=== PATIENT | male | born 1955 | race Caucasian/White ===

== ENCOUNTER 2018-04-23 09:04 | Outpatient (CLI) | payer BC, SELFPAY ==
--- NOTE | 2018-04-23 09:27 | DI.RAD_ITS ---
SYMPTOMS/DIAGNOSIS: PNEUMONIA, J18.9 PA AND LATERAL CHEST: The lungs are free of infiltrate. There is no pleural effusion. The cardiovascular structures are intact. SUMMARY: No evidence of acute cardiopulmonary disease.
== END 2018-04-23 09:24 ==
PROVIDERS: PCP Family Medicine; Visit Provider Physician Assistant Medical
DX: J18.9 Pneumonia, unspecified organism (principal)
CPT/HCPCS: 71046

== ENCOUNTER 2018-10-05 11:15 | Outpatient (CLI) | payer BC, SELFPAY ==
--- NOTE | 2018-10-05 09:30 | DI.RAD_ITS ---
SYMPTOM/DIAGNOSIS: COUGH, R05 PA AND LATERAL CHEST: Comparison is made with 04/23/18. Heart size and pulmonary vasculature are stable and within normal limits. The lungs show no focal consolidating infiltrates, effusions or pneumothoraces. The bones appear intact. IMPRESSION: No acute pulmonary process.
== END 2018-10-05 11:35 ==
PROVIDERS: PCP Family Medicine; Visit Provider Physician Assistant Medical
DX: R05 Cough (principal)
CPT/HCPCS: 71046

== ENCOUNTER 2019-12-23 09:49 | Outpatient (REF) | payer BC, SELFPAY ==
[2019-12-23 19:23] LABS: HCT 43.4 % (40.0-50.0); HGB 14.5 g/dL (13.5-17.5); Mean Corp. HGB Concentration 33.4 g/dL (32.0-36.0); Mean Corpuscular Hemoglobin 30.8 pg (27.0-33.0); Mean Corpuscular Volume 92.1 fL (80-95); Mean Platelet Volume 10.1 fL (8.0-11.0); Platelet Count 205 x1000/uL (130-400); RBC 4.71 m/cumm (4.50-6.00); RBC Distribution Width 13.4 % (11.8-14.1); White Blood Cell Count 4.42 k/cumm (4.4-10.8)
[2019-12-23 20:01] LABS: ALT 19 U/L (16-63); AST 15 U/L (15-37); Albumin 4.2 g/dL (3.4-5.0); Alkaline Phosphatase 50 U/L (46-116); Anion Gap 8.3 mmol/L (3-11); BUN 16 mg/dL (7-18); Bilirubin, Total 1.4 mg/dL (0.2-1.0); CO2 27.7 mmol/L (21.0-32.0); CREATININE 0.72 mg/dL (0.70-1.30); Calcium 9.3 mg/dL (8.5-10.1); Calculated LDL 104 mg/dL (<100); Chloride 106 mmol/L (98-107); Cholesterol 162 mg/dL (<200); Glucose 89 mg/dL (74-106); HDL Cholesterol 48 mg/dL (40-60); Potassium 4.1 mmol/L (3.5-5.1); Sodium 142 mmol/L (136-145); Total Protein 6.9 g/dL (6.4-8.2); Triglyceride 54 mg/dL (<150); Vitamin B12 395 pg/mL (193-986)
[2019-12-26 06:16] LABS: Vitamin D 25 Total 29.1 ng/ml (30-100)
[2019-12-26 09:35] LABS: PSA, Screening 0.8 ng/mL (0.0-4.5)
== END 2019-12-23 10:09 ==
LOC: NCHCN 09:49
PROVIDERS: PCP Family Medicine; Visit Provider Family Medicine
DX: Z98.84 Bariatric surgery status (principal); Z00.00 Encounter for general adult medical examination without abnormal findings
CPT/HCPCS: 80053; 80061; 82306; 84153; 85027; 82607

== ENCOUNTER 2021-04-24 12:44 | Outpatient (REF) | payer BC, SELFPAY ==
[2021-04-27 12:11] LABS: COVID-19 RT-PCR UVMMC Result Positive (Negative)
== END 2021-04-24 12:45 | disposition home or self-care (01) ==
LOC: LBN 12:44
PROVIDERS: PCP Family Medicine; Visit Provider Physician Assistant Medical
DX: Z11.52 Encounter for screening for COVID-19 (principal)
CPT/HCPCS: U0003

== ENCOUNTER 2021-10-16 16:59 | Emergency (ER) | payer BC, SELFPAY ==
--- NOTE | 2021-10-16 17:00 | RT.EKG_ITS ---
APPROVED REPORT Exam: Resting ECG Reason for Exam: CHEST PAIN Patient Location: E HR:60 bpm ECG Measurements Heart Rate 60 AXIS MT 174 P 16 QRSd 105 QRS -23 QT 420 T 36 QTc 420 Conclusion Sinus rhythm...normal P axis, V-rate 60- 99 Probable lateral infarct, old...Q>35mS, abnormal ST-T, V5-6 I aVL
[2021-10-16 17:10] VITALS: BP 145/79; PULSE 65; RESP 18; TEMP 37; O2SAT 98
--- NOTE | 2021-10-16 17:15 | DI.RAD_ITS ---
Exam(s) XR CHEST 2V PA LATERAL EXAM: XR CHEST 2V PA LATERAL CLINICAL HISTORY: chest pain TECHNIQUE: 2D digital imaging was performed of the chest. Three images were obtained. PA and later al views were obtained. COMPARISON: CR XR CHEST 2V PA LATERAL from 10/05/2018 FINDINGS: MEDIASTINUM: Normal. HEART: Normal. PULMONARY VASCULATURE: Normal. LUNGS: Clear. PLEURAL SPACE: No pleural effusion or pneumothorax. BONE:Within normal limits for the patient's age. Right shoulder replacement is incompletely imaged o n the current examination. OTHER FINDINGS:Normal. IMPRESSION: No acute pulmonary findings. DATA REPOSITORY: RADIATION DOSE DELIVERED:
--- NOTE | 2021-10-16 17:24 | ED.GENADUL_ITS ---
Discharge Plan Disposition Patient Disposition: HOME Discharge Details Clinical Impression: Atypical chest pain Primary Care Provider: Dacia Hancock V ED Provider: Kofi Jacobson Discharge Instructions Instructions: Chest Pain (ED) Additional Instructions: Please take a baby aspirin a day Please follow-up with your doctor this week Return if any concerns Medical Decision Making patient with atypical chest pain two sets of cardiac enzymes negative in pain free patient low heart score - he will follow up with pcp next week as planned HPI General Date/Time Provider Initiated Documentation: 10/16/21 17:23 . HPI Narrative: 66-year-old presented to the emergency room for evaluation of chest pounding. He had chemotherapy today. P.m. while taking a walk. He felt heart beat hard and admits as a usual. He felt some radiation of discomfort to his left shoulder into the back of his hea d. The discomfort started on its own. He had 1 more episode while lying down. At times he believes his heart rate was about 80. He is usually a very active person. Last weekend he was cutting trees and chipping brush and had no discomfort. No headaches. No neck pain. Currently without any symptoms of Emergency Department. No chest pressure per se. No chest pain. No cough. No shortness of breath. No abdominal pain. No back pain. No nausea no vomiting. He is not on any medications. He sees his PCP on a regular basis. Related Data Allergies Allergy/AdvReac Type Severity Reaction Status Date / Time vancomycin Allergy Severe Anaphylaxis Unverified 10/16/21 17:33 aspirin AdvReac Mild Nausea Unverified 10/16/21 17:33 General Stated Complaint: Chest Pain JANA: 2 Review of Systems Narrative: Constitutional negative for fevers and chills. Negative for fatigue HEENT no visual changes. Cardiovascular see HPI respiratory see HPI Abdominal pain. No nausea vomiting General well-developed Skin negative Neuro negative Psych anxiety Endo negative HemeNot on a blood thinners PFSH All Active Problems (Updated 10/16/21 @ 21:29 by Kofi Jacobson MD) Atypical chest pain (Acute) Social History Smoking/Tobacco Use Status: Never Smoking risk assessment performed?: Yes Alcohol Intake: never Substance use type: does not use Do you feel safe at home: Yes Do you feel safe in your relationship?: Yes Exam Narrative Exam Narrative: AAOx3 Calm NAD Pleasabt cooperative VENESSA EOMI MMM CTAB RRR no m/r/g ABd S ND NT Skin Intact Neuro grossly intact Ext no edema Pysch normalmood and affect Course Vital Signs Vital signs: Vital Signs Temperature 37 C 10/16/21 17:10 Pulse 65 10/16/21 17:10 Respiratory Rate 18 10/16/21 17:10 Blood Pressure 145/79 H 10/16/21 17:10 Pulse Oximetry 98 10/16/21 17:10 Temperature 37 C 10/16/21 17:10 Temperature Source Temporal Artery Scan 10/16/21 17:10 Pulse 65 10/16/21 17:10 Respiratory Rate 18 10/16/21 17:10 Blood Pressure 145/79 H 10/16/21 17:10 Blood Pressure Position Supine 10/16/21 17:10 Pulse Oximetry 98 10/16/21 17:10 Oxygen Delivery Method Room Air 10/16/21 17:10 Oxygen Flow Rate 0 10/16/21 17:10
[2021-10-16 17:26] VITALS: RESP 18
[2021-10-16] MEDS: Aspirin 81 MG CHEW 324 MG CH (17:41)
[2021-10-16 17:50] LABS: Abs Immature Grans 0.01 10^3/uL (0.0-0.06); Absolute Basophil Count 0.03 10^3/uL (0.0-0.2); Absolute Eosinophil Count 0.18 10^3/uL (0.0-0.7); Absolute Lymphocyte Count 1.56 10^3/uL (1.2-3.4); Absolute Monocyte Count 0.38 10^3/uL (0.1-0.8); Absolute Neutrophil Count 2.36 10^3/uL (1.2-6.7); Basophils % 0.7; HCT 40.1 % (40.0-50.0); HGB 13.6 g/dL (13.5-17.5); Immature Grans % 0.2; Lymphocytes % 34.5; MCH 30.6 pg (27.0-33.0); MCHC 33.9 % (32.0-36.0); MCV 90 fL (80-95); MPV 9.6 fL (8.0-11.0); Monocytes % 8.4; Neutrophils % 52.2; Platelet Count 182 10^3/uL (130-400); RBC 4.44 10^6/uL (4.36-5.78); RDW 13.2 % (11.8-14.1); RDW-SD 42.6 fL; WBC 4.52 10^3/uL (4.4-10.8)
[2021-10-16 18:04] LABS: ALT 18 U/L (16-63); AST 14 U/L (15-37); Albumin 3.8 g/dL (3.4-5.0); Alkaline Phosphatase 49 U/L (46-116); Anion Gap 7.7 mmol/L (3-11); BUN 12 mg/dL (7-18); CO2 27.3 mmol/L (21.0-32.0); CREATININE 0.9 mg/dL (0.70-1.30); Calcium 8.4 mg/dL (8.5-10.1); Chloride 105 mmol/L (98-107); Glucose 91 mg/dL (74-106); Magnesium 2.2 mg/dL (1.8-2.4); Sodium 140 mmol/L (136-145); Total Protein 6.6 g/dL (6.4-8.2); Troponin I < 50 ng/L (<or=60)
--- NOTE | 2021-10-16 18:05 | DI.VRAD_ITS ---
PROCEDURE INFORMATION: Exam: XR Chest Exam date and time: 10/16/2021 17:46 Age: 66 years old Clinical indication: Pain; Other: Chest TECHNIQUE: Imaging protocol: XR of the chest. Views: 2 views. COMPARISON: CR XR CHEST 2V PA LATERAL 10/05/2018 09:26 FINDINGS: Lungs: No consolidation. Pleural spaces: No pleural effusion. No pneumothorax. Heart/Mediastinum: No cardiomegaly. Vasculature: Tortuous aorta. Bones/joints: Right glenohumeral arthroplasty partially seen. No displaced fracture. IMPRESSION: No acute cardiopulmonary pathology. Dictated and Authenticated by: Aline Hernandez MD. Ordering:HELGA Kirby MD
[2021-10-16 21:07] LABS: Troponin I < 50 ng/L (<or=60)
[2021-10-16 21:19] VITALS: BP 130/82; PULSE 65; RESP 18; TEMP 37; O2SAT 99
== END 2021-10-16 21:43 | disposition home or self-care (01) ==
PROVIDERS: Emergency Provider Emergency Medicine; PCP Family Medicine
DX: R07.89 Other chest pain (principal)
CPT/HCPCS: 36415; 80053; 93005; 99284; 71046; 83735; 84484; 85025; 93010; 99283

== ENCOUNTER 2021-10-30 17:23 | Outpatient (REF) | payer BC, SELFPAY ==
[2021-10-30 16:03] LABS: Calculated LDL 103 mg/dL (<100); Cholesterol 165 mg/dL (<200); HDL Cholesterol 52 mg/dL (40-60); Triglyceride 51 mg/dL (<150)
[2021-10-30 22:17] LABS: PSA, Screening 0.8 ng/mL (<=4.5)
== END 2021-10-30 17:24 | disposition home or self-care (01) ==
LOC: NCHCN 17:23
PROVIDERS: PCP Family Medicine; Visit Provider Family Medicine
DX: Z00.00 Encounter for general adult medical examination without abnormal findings (principal); Z13.220 Encounter for screening for lipoid disorders; Z12.5 Encounter for screening for malignant neoplasm of prostate
CPT/HCPCS: 80061; 84153

== ENCOUNTER 2024-01-07 20:45 | Outpatient (REF) | payer MEDICARE, SELFPAY ==
[2024-01-07 21:44] LABS: HCT 42.1 % (40.0-50.0); HGB 13.9 g/dL (13.5-17.5); MCH 30.6 pg (27.0-33.0); MCV 93 fL (80-95); MPV 9.9 fL (8.0-11.0); Platelet Count 202 10^3/uL (130-400); RBC 4.54 10^6/uL (4.36-5.78); RDW 13.1 % (11.8-14.1); RDW-SD 44.1 fL; WBC 5.16 10^3/uL (4.4-10.8)
[2024-01-07 21:51] LABS: ALT 21 U/L (16-63); AST 12 U/L (15-37); Albumin 3.9 g/dL (3.4-5.0); Alkaline Phosphatase 66 U/L (46-116); Anion Gap 9.9 mmol/L (3-11); BUN 12 mg/dL (7-18); Bilirubin, Total 1.75 mg/dL (0.2-1.0); CO2 26.1 mmol/L (21.0-32.0); CREATININE 0.8 mg/dL (0.70-1.30); Calcium 8.7 mg/dL (8.5-10.1); Calculated LDL 86 mg/dL (<100); Chloride 104 mmol/L (98-107); Cholesterol 156 mg/dL (<200); Estimated GFR 97.61 (mL/min/1.73m2); Glucose 108 mg/dL (74-106); HDL Cholesterol 46 mg/dL (40-60); Potassium 4.1 mmol/L (3.5-5.1); Sodium 140 mmol/L (136-145); Total Protein 6.6 g/dL (6.4-8.2); Triglyceride 122 mg/dL (<150)
[2024-01-07 22:43] LABS: Hemoglobin A1C 5.1 % (<5.7)
[2024-01-11 18:07] LABS: Unconjugated(Indirect) Bili 1.4 mg/dL (<=1.1)
== END 2024-01-07 20:46 | disposition home or self-care (01) ==
LOC: NCHCN 20:45
PROVIDERS: PCP Family Medicine; Visit Provider Family Medicine
DX: Z00.00 Encounter for general adult medical examination without abnormal findings (principal); Z12.5 Encounter for screening for malignant neoplasm of prostate
CPT/HCPCS: 80053; 80061; 82248; 84153; 85027; 83036; 83735